=== PATIENT | female | born 1995 | race Caucasian/White ===

== ENCOUNTER 2017-01-15 13:53 | Emergency (ER) | payer MEDICAID ==
[~2017-01-15] VITALS: Ht 165.1 cm; Wt 55.0 kg
[2017-01-15] MEDS ORDERED: NASAL SPRAY 120.05 % IN (14:04)
[2017-01-15 16:50] LABS: HEMATOCRIT 40.8 % (37.0-47.0); HEMOGLOBIN 13.7 g/dl (12.0-16.0); IMMATURE GRANULOCYTES 0.2 % (0.0-1.0); MEAN CELL VOLUME 86.4 fL CALC (80.0-100.0); MEAN CORPUSCULAR HGB CONC 33.6 g/L CALC (32.0-36.0); NEUT# 5.21 thou/uL (2.00-7.15); RED BLOOD COUNT 4.72 mill/uL (4.20-5.60); RED CELL DISTRI WIDTH 12.4 % (11.5-15.5)
[2017-01-15 16:51] LABS: URINE BILIRUBIN - DIPSTICK NEGATIVE (NEGATIVE); URINE BLOOD DIPSTICK NEGATIVE (NEGATIVE); URINE CLARITY CLEAR; URINE COLOR YELLOW; URINE GLUCOSE - DIPSTICK NEGATIVE (NEGATIVE); URINE KETONE NEGATIVE (NEGATIVE); URINE LEUK ESTERASE NEGATIVE (NEGATIVE); URINE NITRITE - DIPSTICK NEGATIVE (Negative); URINE PROTEIN - DIPSTICK NEGATIVE (NEG-TRACE); URINE SPECIFIC GRAVITY <=1.005; URINE UROBILINOGEN - DIPSTICK 0.2 E.U./dL (0.2)
[2017-01-15 17:12] LABS: ALKALINE PHOSPHATASE 94 u/l (38-126); ANION GAP 19 (6-22 (CALC)); BILIRUBIN, TOTAL 1.1 mg/dL (0.0-1.4); BUN 13 mg/dL (7-17); BUN/CREATININE RATIO 17 (12-20 (CALC)); CARBON DIOXIDE 27 mmol/l (22-30); CHLORIDE 102 mmol/l (95-108); CREATININE 0.8 mg/dL (0.5-1.0); GFR > 60 ML/MIN (>=60 (CALC)); GFR FOR AFR.AMER. > 60 ML/MIN (>=60 (CALC)); GLUCOSE 85 mg/dL (65-105); SGOT/AST 23 u/l (14-36); SGPT/ALT 30 u/l (9-52); SODIUM 143 mmol/l (137-146); TOTAL PROTEIN 8.7 g/dL (6.3-8.2)
[2017-01-15] MEDS ORDERED: ZOFRAN ODT4 MG PO (17:35)
[2017-01-15 17:47] VITALS: BP 130/70
== END 2017-01-15 17:56 | disposition home or self-care (01) | DRG 866 ==
LOC: ED 13:53
PROVIDERS: Emergency Medicine
DX: B34.9 Viral infection, unspecified (principal); R06.02 Shortness of breath; R11.2 Nausea with vomiting, unspecified